=== PATIENT | female | born 1950 | race Caucasian/White ===

== ENCOUNTER 2016-02-22 16:26 | Emergency (ER) | payer OTHER ==
[~2016-02-22] VITALS: Ht 177.8 cm; Wt 73.5 kg
--- NOTE | 2016-02-22 16:44 | Emergency Room Report ---
History of Present Illness General Chief Complaint: Female Urogenital Problems Source: Patient Present Illness HPI 65 YO F with left flank pain at 3pm that "knocked the wind out of me." Pain was initially "excruciating, 10/10" now is "2/10" after she took advil. Pain was progressively building and then released. Had multiple episodes of polyuria starting at midnight last night. She didnt notice until this morning that urine was red. Denies ASA or other AC medication. Denies history of kidney stones. Twin sister with kidney stones. Has HLD and takes crestor but denies other med problems. Allergies: Uncoded Allergies: SULFA (Allergy, Unknown, 02/22/16) Patient History Past Surgical History: none Pertinent Family History: none Social History: Denies: alcohol use, drug use, smoking Now: No Immunizations: UTD Reviewed Nursing Documentation: PMH: Agreed, PSxH: Agreed Nursing Documentation-PMH Past Medical History: No Stated History Review of Systems All Other Systems: negative except mentioned in HPI Physical Exam Vital Signs Date Time Temp Pulse Resp B/P Pulse Ox O2 Delivery O2 Flow Rate FiO2 02/22/16 16:34 97.3 94 20 153/69 98 Room Air Sp02 EP Interpretation: reviewed, normal General Appearance: normal inspection, well appearing, no apparent distress, alert Head: atraumatic ENT: normal ENT inspection, hearing grossly normal, normal voice Neck: normal inspection, full range of motion, supple, no bony tend Respiratory: normal inspection, lungs clear, normal breath sounds, no respiratory distress, no retraction, no wheezing Cardiovascular #1: regular rate, rhythm, no edema Gastrointestinal: normal inspection, normal bowel sounds, non tender, soft, no guarding, no hernia Genitourinary: no CVA tenderness, other - urine is grossly red Musculoskeletal: normal inspection, back normal, normal range of motion, Mireille' s Sign negative Neurologic: normal inspection, alert, oriented x3, responsive, membership secretary III-XII nml as tested, motor strength/tone normal, speech normal Psychiatric: normal inspection, judgement/insight normal, mood/affect normal Skin: normal inspection, normal color, no rash Medical Decision Making Diagnostic Impression: Primary Impression: Dysuria Additional Impressions: Hematuria Right flank pain ER Course 65 YO F left flank pain, hematuria, polyuria. VSS. Afebrile. Patient comfortable now. No CVAT. Abd is non focal. DDx pyleo, cystitis, renal stone UA: + blood. LE. WBCs. Will tx with Keflex 500mg BID, 7 days given sulfa drug Last Vital Signs Date Time Temp Pulse Resp B/P Pulse Ox O2 Delivery O2 Flow Rate FiO2 02/22/16 16:34 97.3 94 20 153/69 98 Room Air Status: improved Disposition: HOME, SELF-CARE CONCHIS SANCHEZ M.D. Feb 22, 2016 16:44
[2016-02-22 16:55] LABS: APPEARANCE,URINE TURBID; KETONES,URINE 1+ (NEGATIVE); LEUKOCYTE ESTERASE ,URINE 2+ (NEGATIVE); NITRITE,URINE NEGATIVE (NEGATIVE); PH,URINE 5 (4.5-8.0); PROTEIN,URINE 3+ (NEGATIVE); UROBILINOGEN,URINE 1 MG/DL (0.0-1.0)
[2016-02-22 17:18] LABS: RBC,URINE 20-30 /HPF (0 - 2); SQUAMOUS EPITHELIAL CELL,UR FEW /LPF (NONE/OCC)
[2016-02-22 17:19] LABS: BACTERIA,URINE MODERATE /HPF; YEAST,URINE FEW /HPF
[2016-02-22] MEDS ORDERED: KEFLEX500 MG ORAL (17:29)
[2016-02-22 17:45] VITALS: BP 148/64
[2016-02-22 17:47] VITALS: BP 148/64
== END 2016-02-22 17:49 | disposition home or self-care (01) ==
LOC: EMR 17:05
DX: R30.0 Dysuria (principal); R31.9 Hematuria, unspecified; R10.9 Unspecified abdominal pain; R35.8 Other polyuria; E78.5 Hyperlipidemia, unspecified; Z79.899 Other long term (current) drug therapy; Z88.2 Allergy status to sulfonamides
CPT/HCPCS: 81003; 87086; 99282